=== PATIENT | female | born 2000 | race Two or more races ===

== ENCOUNTER → 2022-09-18 | Outpatient (CLI) | payer OTHER | END | disposition home or self-care (01) | LOC: NUCLEAR 07:00 | PROVIDERS: ATTEND Internal Medicine Gastroenterology | DX: K31.84 Gastroparesis (principal) | CPT/HCPCS: 78264; A9541 ==

== ENCOUNTER 2023-08-12 04:56 | Emergency (ER) | payer OTHER ==
[~2023-08-12] VITALS: Ht 160 cm; Wt 63.5 kg
[2023-08-12] MEDS ORDERED: KETOROLAC TROMETHAMINE 30 MG VIAL IV STA (05:57)
[2023-08-12] MEDS ORDERED: ORPHENADRINE CITRATE 30 MG/ML AMPUL IV STA (05:57)
[2023-08-12] MEDS ORDERED: PROMETHAZINE HCL 50 MG/ML AMPUL IM STA (05:57)
[2023-08-12] MEDS ORDERED: DEXTROSE 5 % AND 0.9 % NACL 500 ML IV ONE (06:00)
[2023-08-12] MEDS ORDERED: ESGIC 50-325-41 EACH PO (08:22)
== END 2023-08-12 08:35 ==
LOC: ER 04:57
DX: G43.909 Migraine, unspecified, not intractable, without status migrainosus (principal)

== ENCOUNTER 2023-09-09 03:05 | Emergency (ER) | payer OTHER ==
[~2023-09-09] VITALS: Ht 160 cm; Wt 64.4 kg
[~2023-09-09 03:05] MED LIST: ESGIC 50-325-41 EACH PO
[2023-09-09] MEDS ORDERED: KETOROLAC TROMETHAMINE 60 MG VIAL IM STA (04:04)
[2023-09-09] MEDS ORDERED: NEOMYCIN/POLYMYXIN B/HYDROCORT 20 DR/ML BOTTLE OT STA (04:05)
[2023-09-09 05:53] LABS: HEMATOCRIT 41.5 % (36.0-45.00); HEMOGLOBIN 14.7 g/dL (12.0-15.00); MEAN CELL VOLUME 86.6 fL (80.00-100.00); MEAN CORPUSCULAR HEMOGLOBIN 30.7 pg (27.00-32.0); MEAN CORPUSCULAR HGB CONC 35.5 g/dl (32.0-36.0); PLATELET COUNT 263 K/uL (150-450); RED BLOOD COUNT 4.79 M/uL (4.00-6.00); RED CELL DISTRIBUTION WIDTH 12.9 % (11.5-14.5)
[2023-09-09] MEDS ORDERED: CEFTRIAXONE SODIUM 1,000 MG VIAL IM STA (06:14)
[2023-09-09] MEDS ORDERED: KETO10TA2 PO (06:23)
[2023-09-09] MEDS ORDERED: CEPHALEXIN750 MG PO (06:23)
== END 2023-09-09 06:28 ==
LOC: ER 03:06
PROVIDERS: General Practice
DX: H60.91 Unspecified otitis externa, right ear (principal)

== ENCOUNTER 2024-01-12 04:01 | Emergency (ER) | payer OTHER ==
[~2024-01-12] VITALS: Ht 160 cm; Wt 64.4 kg
[~2024-01-12 04:01] MED LIST changes: +CEPHALEXIN750 MG PO; +KETO10TA2 PO
[2024-01-12] MEDS ORDERED: BUSPIRONE HCL5 MG PO (04:15)
[2024-01-12] MEDS ORDERED: CLONAZEPAM0.5 MG PO (04:15)
[2024-01-12] MEDS ORDERED: CEFTRIAXONE SODIUM 2,000 MG VIAL IM STA (05:13)
== END 2024-01-12 05:35 | disposition home or self-care (01) ==
LOC: ER 04:02
DX: J03.90 Acute tonsillitis, unspecified (principal)

== ENCOUNTER 2024-06-28 05:22 | Emergency (ER) | payer OTHER ==
[~2024-06-28] VITALS: Ht 160 cm; Wt 56.7 kg
[~2024-06-28 05:22] MED LIST changes: +BUSPIRONE HCL5 MG PO; +CLONAZEPAM0.5 MG PO
[2024-06-28] MEDS ORDERED: KETOROLAC TROMETHAMINE 30 MG VIAL ONE (08:41)
[2024-06-28] MEDS ORDERED: DIPHENHYDRAMINE HCL 50 MG/ML VIAL 1ML ONE (08:41)
[2024-06-28] MEDS ORDERED: ONDANSETRON HCL 2 MG/ML VIAL ONE (08:41)
[2024-06-28] MEDS ORDERED: DIPHENHYDRAMINE HCL 50 MG/ML VIAL 1ML IV ONE (08:45)
[2024-06-28] MEDS ORDERED: 0.9 % SODIUM CHLORIDE 500 ML IV ONE (08:45)
[2024-06-28] MEDS ORDERED: KETOROLAC TROMETHAMINE 30 MG VIAL IV ONE (08:45)
[2024-06-28] MEDS ORDERED: ONDANSETRON HCL 2 MG/ML VIAL IV ONE (09:00)
== END 2024-06-28 10:12 | disposition home or self-care (01) ==
LOC: ER 05:24
DX: G43.109 Migraine with aura, not intractable, without status migrainosus (principal)
CPT/HCPCS: 96365; 96366; 99282; J1200; J1885; J2405; J7042